=== PATIENT | male | born 1950 | race Caucasian/White ===

== ENCOUNTER 2017-06-08 18:13 | Outpatient (CLI) | payer OTHER | END 2017-06-08 18:14 | disposition EMS.NT | LOC: EMS 18:13 | PROVIDERS: ATTEND Surgery | DX: R40.4 Transient alteration of awareness (principal) ==

== ENCOUNTER 2018-05-14 19:12 | Outpatient (CLI) | payer OTHER | END 2018-05-14 19:13 | disposition short-term general hospital (02) | LOC: EMS 19:12 | PROVIDERS: ATTEND Surgery | DX: R11.2 Nausea with vomiting, unspecified (principal); R68.83 Chills (without fever) | CPT/HCPCS: A0425; A0427 ==

== ENCOUNTER 2020-05-31 19:55 | Outpatient (CLI) | payer OTHER | END 2020-05-31 19:56 | disposition home or self-care (01) | LOC: COV 19:55 | PROVIDERS: ATTEND Family Medicine | DX: R50.9 Fever, unspecified (principal); Z20.828 Contact with and (suspected) exposure to other viral communicable diseases; R05 Cough; R53.83 Other fatigue; J02.9 Acute pharyngitis, unspecified; R09.81 Nasal congestion; R09.89 Other specified symptoms and signs involving the circulatory and respiratory systems ==

== ENCOUNTER 2021-03-09 06:48 | Outpatient (CLI) | payer OTHER | END 2021-03-09 06:49 | disposition short-term general hospital (02) | LOC: EMS 06:48 | DX: R07.9 Chest pain, unspecified (principal) | CPT/HCPCS: A0425; A0427 ==

== ENCOUNTER 2021-03-25 12:45 | Outpatient (CLI) | payer OTHER ==
[2021-03-25 17:17] LABS: CALCIUM 9.6 mg/dL (8.5-10.3); CREATININE 0.9 mg/dL (0.6-1.2); POTASSIUM 4.5 mmol/L (3.5-5.0)
== END 2021-03-25 12:46 | disposition home or self-care (01) ==
LOC: LAB.N 12:45
PROVIDERS: ATTEND Internal Medicine Cardiovascular Disease
DX: I25.5 Ischemic cardiomyopathy (principal); I47.2 Ventricular tachycardia
CPT/HCPCS: 36415; 80048

== ENCOUNTER 2021-05-16 14:52 | Outpatient (CLI) | payer OTHER ==
[2021-05-16 18:34] LABS: CHOL/HDL RATIO 2.5 (<5.0); CHOLESTEROL 121 mg/dL; HDL CHOLESTEROL 49 mg/dL; LDL CHOLESTEROL,CALCULATED 53 mg/dL; LDL/HDL RATIO 1.1 (<3.6); TRIGLYCERIDES 94 mg/dL; VLDL CHOLESTEROL 19 mg/dL
== END 2021-05-16 14:53 | disposition home or self-care (01) ==
LOC: LAB.N 14:52
PROVIDERS: ATTEND Nurse Practitioner Family
DX: E78.2 Mixed hyperlipidemia (principal)
CPT/HCPCS: 36415; 80061; 83721

== ENCOUNTER 2021-07-05 21:10 | Outpatient (CLI) | payer OTHER | END 2021-07-05 21:11 | disposition short-term general hospital (02) | LOC: EMS 21:10 | DX: R61 Generalized hyperhidrosis (principal); R94.31 Abnormal electrocardiogram [ECG] [EKG]; F41.9 Anxiety disorder, unspecified | CPT/HCPCS: A0425; A0429 ==